=== PATIENT | female | born 1965 | race Caucasian/White ===

== ENCOUNTER 2017-08-30 20:29 | Emergency (ER) | payer MEDICARE, MEDICAID ==
[~2017-08-30] VITALS: Ht 5619.3 cm; Wt 91.0 kg
[~2017-08-30 20:29] MED LIST: CARV3.1289 PO; LISI10TA4 PO; NITR0.4T51 SL
[2017-08-30] MEDS ORDERED: ALBU8HFA PO (21:23)
[2017-08-30] MEDS ORDERED: GUAI473S11 PO (21:23)
[2017-08-30] MEDS ORDERED: PRED20TA PO (21:23)
[2017-08-30] MEDS ORDERED: BECL8.7A7 INH (21:23)
[2017-08-30 21:30] VITALS: BP 168/99
[2017-08-30] MEDS ORDERED: AZIT500T2 PO (22:47)
== END 2017-08-30 21:31 | disposition home or self-care (01) ==
LOC: ER 20:31
DX: J20.9 Acute bronchitis, unspecified (principal); J44.9 Chronic obstructive pulmonary disease, unspecified; I10 Essential (primary) hypertension; I25.2 Old myocardial infarction; F17.200 Nicotine dependence, unspecified, uncomplicated; F15.10 Other stimulant abuse, uncomplicated; Z88.0 Allergy status to penicillin; Z88.1 Allergy status to other antibiotic agents
CPT/HCPCS: 99283

== ENCOUNTER 2019-06-08 14:36 | Emergency (ER) | payer MEDICARE, MEDICAID ==
[~2019-06-08] VITALS: Ht 170.2 cm; Wt 90.9 kg
[~2019-06-08 14:36] MED LIST changes: +BECL8.7A7 INH
[2019-06-08 14:44] VITALS: BP 140/99
[2019-06-08] MEDS ORDERED: methylPREDNISolone sod succ 125mg/2ml vial IV ONE (15:40)
[2019-06-08] MEDS ORDERED: normal saline 1000ML IV soln IVB ONE (15:40)
[2019-06-08] MEDS ORDERED: furosemide 20 MG/2 ML vial IV ONE (15:50)
[2019-06-08] MEDS ORDERED: furosemide 10 MG/1 ML 10ml inj IV ONE (15:50)
[2019-06-08 15:59] LABS: BASOPHILS # (AUTO) 0.1 X10'3 (0-0.2); BASOPHILS % (AUTO) 0.9 % (0-1); EOSINOPHILS # (AUTO) 0.1 X10'3 (0-0.9); EOSINOPHILS % (AUTO) 0.8 % (0-6); HEMATOCRIT 41.2 % (35.0-45.0); HEMOGLOBIN 13.5 g/dl (12.0-16.0); LYMPHOCYTES # (AUTO) 2.3 X10'3 (1.1-4.8); LYMPHOCYTES % (AUTO) 28.4 % (21-51); MEAN CORPUSCULAR HEMOGLOBIN 30.6 PG (27.0-31.0); MEAN CORPUSCULAR HGB CONC 32.8 g/dL (33.0-36.5); MEAN CORPUSCULAR VOLUME 93.3 FL (78-98); MEAN PLATELET VOLUME 7.8 FL (7.4-10.4); MONOCYTES # (AUTO) 0.5 X10'3 (0-0.9); MONOCYTES % (AUTO) 6.3 % (2-12); NEUTROPHILS # (AUTO) 5.1 X10'3 (1.8-7.7); NEUTROPHILS % (AUTO) 63.6 % (42-75); PLATELET COUNT 226 X10'3 (140-440); RED BLOOD COUNT 4.42 X10'6 (4.20-5.60); RED CELL DISTRIBUTION WIDTH 14.4 % (11.5-14.5)
[2019-06-08] MEDS ORDERED: albuterol 2.5 MG/3 ML nebule CONTNEB PRN (16:10)
[2019-06-08 16:27] LABS: ALANINE AMINOTRANSFERASE 39 U/L (12-78); ALBUMIN 3.4 G/DL (3.4-5.0); ALBUMIN/GLOBULIN RATIO 0.9 (1.1-1.5); ALKALINE PHOSPHATASE 83 IU/L (46-116); ANION GAP 11 (8-16); ASPARTATE AMINO TRANSFERASE 30 U/L (10-37); BILIRUBIN,TOTAL 0.8 MG/DL (0.1-1.0); BLOOD UREA NITROGEN 16 MG/DL (7-18); BUN/CREATININE RATIO 23.2 (6.6-38.0); CALCIUM 8.8 MG/DL (8.5-10.1); CHLORIDE 105 MMOL/L (99-107); CREATININE 0.69 MG/DL (0.40-0.90); GLUCOSE 147 MG/DL (70-104); POTASSIUM 3.9 MMOL/L (3.5-5.1); SODIUM 142 MMOL/L (135-145); TOTAL CARBON DIOXIDE 26.1 MMOL/L (24-32); TOTAL PROTEIN 7.1 G/DL (6.4-8.2); eGFR 89 ML/MIN
[2019-06-08] MEDS ORDERED: POTA10TA19 PO (18:01)
[2019-06-08] MEDS ORDERED: FURO-150 PO (18:01)
== END 2019-06-08 18:21 | disposition home or self-care (01) ==
LOC: ER 14:36
DX: I50.9 Heart failure, unspecified (principal); I11.0 Hypertensive heart disease with heart failure; R53.83 Other fatigue; I25.2 Old myocardial infarction; J44.9 Chronic obstructive pulmonary disease, unspecified; Z88.0 Allergy status to penicillin; Z88.1 Allergy status to other antibiotic agents; Z79.899 Other long term (current) drug therapy
CPT/HCPCS: 36415; 71045; 80053; 83880; 84484; 85025; 93005; 94644; 94760; 96374; 96375; 99285; J1940; J2930

== ENCOUNTER 2019-07-03 16:03 | Emergency (ER) | payer MEDICARE, MEDICAID ==
[~2019-07-03] VITALS: Ht 170.2 cm; Wt 86.4 kg
[~2019-07-03 16:03] MED LIST changes: +FURO-150 PO; +POTA10TA19 PO
[2019-07-03 16:58] LABS: BASOPHILS # (AUTO) 0.1 X10'3 (0-0.2); BASOPHILS % (AUTO) 1.1 % (0-1); EOSINOPHILS % (AUTO) 0.7 % (0-6); HEMATOCRIT 43.3 % (35.0-45.0); HEMOGLOBIN 14.3 g/dl (12.0-16.0); LYMPHOCYTES # (AUTO) 2.1 X10'3 (1.1-4.8); LYMPHOCYTES % (AUTO) 31.6 % (21-51); MEAN CORPUSCULAR HGB CONC 33.1 g/dL (33.0-36.5); MEAN CORPUSCULAR VOLUME 90.5 FL (78-98); MEAN PLATELET VOLUME 7.8 FL (7.4-10.4); MONOCYTES # (AUTO) 0.6 X10'3 (0-0.9); MONOCYTES % (AUTO) 8.3 % (2-12); NEUTROPHILS # (AUTO) 3.9 X10'3 (1.8-7.7); NEUTROPHILS % (AUTO) 58.3 % (42-75); PLATELET COUNT 223 X10'3 (140-440); RED BLOOD COUNT 4.78 X10'6 (4.20-5.60); RED CELL DISTRIBUTION WIDTH 14.7 % (11.5-14.5); WHITE BLOOD COUNT 6.7 X10'3 (4.5-11.0)
[2019-07-03 17:16] LABS: ALANINE AMINOTRANSFERASE 36 U/L (12-78); ALBUMIN 3.3 G/DL (3.4-5.0); ALKALINE PHOSPHATASE 73 IU/L (46-116); ANION GAP 10 (8-16); ASPARTATE AMINO TRANSFERASE 37 U/L (10-37); BILIRUBIN,TOTAL 1.2 MG/DL (0.1-1.0); BLOOD UREA NITROGEN 12 MG/DL (7-18); BUN/CREATININE RATIO 10.9 (6.6-38.0); CALCIUM 8.8 MG/DL (8.5-10.1); CHLORIDE 103 MMOL/L (99-107); GLUCOSE 132 MG/DL (70-104); POTASSIUM 3.5 MMOL/L (3.5-5.1); SODIUM 142 MMOL/L (135-145); TOTAL CARBON DIOXIDE 28.6 MMOL/L (24-32); TOTAL PROTEIN 6.7 G/DL (6.4-8.2); eGFR 52 ML/MIN
--- NOTE | 2019-07-03 17:30 | NUR ---
provider at bedside
[2019-07-03] MEDS ORDERED: furosemide 40mg/4ml inj IV ONE (18:30)
[2019-07-03 19:00] VITALS: BP 118/91
[2019-07-03 19:08] LABS: MAGNESIUM 1.8 MG/DL (1.5-2.4)
[2019-07-03] MEDS ORDERED: nicotine prolacrilex 4mg gum BC PRN (19:40)
[2019-07-03] MEDS ORDERED: magnesium hydroxide 30ml (MOM) UD suspension PO PRN (19:50)
[2019-07-03] MEDS ORDERED: mag hydrox/Alum hydrox/simeth 30ml oral suspension PO PRN (19:50)
[2019-07-03] MEDS ORDERED: ondansetron/PF 4mg/2ml inj IV PRN (19:50)
[2019-07-03] MEDS ORDERED: magnesium Cl slow-release 64mg tablet PO PRN (19:50)
[2019-07-03] MEDS ORDERED: magnesium 2GM in 50ml NS 50 ML IV PRN (19:50)
[2019-07-03] MEDS ORDERED: magnesium 4gm in 100ml NS 100 ML IV PRN (19:50)
[2019-07-03] MEDS ORDERED: acetaminophen 325mg tablet PO PRN ×2 (19:50)
[2019-07-03] MEDS ORDERED: nitroGLYCERIN 0.4mg SUBLingual tab SL PRN (19:50)
[2019-07-03] MEDS ORDERED: nicotine prolacrilex 2mg gum BC PRN (19:50)
[2019-07-03] MEDS ORDERED: potassium CL 10mEq/100ml bag 100 ML IV PRN ×2 (19:50)
[2019-07-03] MEDS ORDERED: potassium Cl 20 mEq SR tablet PO PRN ×2 (19:50)
[2019-07-03] MEDS ORDERED: POTA10TA19 PO (19:53)
[2019-07-03] MEDS ORDERED: ASPI-1053 PO (19:53)
[2019-07-03] MEDS ORDERED: FURO-150 PO (19:53)
--- NOTE | 2019-07-03 19:58 | NUR ---
BERNY JAFFE AT PT BEDSIDE. PT REQUESTING TO LEAVE AMA. AMA PAPERWORK FILLED OUT AND IV PULLED. PT WILL BE DISCHARGING.
[2019-07-04] MEDS ORDERED: enoxaparin 40mg/0.4ml syringe SQ SCH (08:00)
[2019-07-04] MEDS ORDERED: K and/or MAG REPLACEMENT MC SCH (08:00)
== END 2019-07-03 20:09 | disposition left against medical advice (07) ==
LOC: ER 16:12
DX: J44.9 Chronic obstructive pulmonary disease, unspecified (principal); I11.0 Hypertensive heart disease with heart failure; I50.9 Heart failure, unspecified; I25.2 Old myocardial infarction; F17.200 Nicotine dependence, unspecified, uncomplicated; Z88.0 Allergy status to penicillin; Z88.1 Allergy status to other antibiotic agents; Z79.82 Long term (current) use of aspirin; Z79.899 Other long term (current) drug therapy
CPT/HCPCS: 36415; 71045; 80053; 83735; 83880; 84484; 85025; 93005; 96374; 99284; J1940

== ENCOUNTER 2019-07-29 17:15 | Inpatient (IN) | payer MEDICARE, MEDICAID ==
[~2019-07-29] VITALS: Ht 170.2 cm; Wt 95.6 kg
[~2019-07-29 17:15] MED LIST changes: +ASPI-1053 PO; -BECL8.7A7 INH; -CARV3.1289 PO; -LISI10TA4 PO; -NITR0.4T51 SL
[2019-07-29 19:20] LABS: BASOPHILS # (AUTO) 0.1 X10'3 (0-0.2); BASOPHILS % (AUTO) 0.9 % (0-1); EOSINOPHILS % (AUTO) 0.5 % (0-6); HEMATOCRIT 44.7 % (35.0-45.0); HEMOGLOBIN 14.6 g/dl (12.0-16.0); LYMPHOCYTES # (AUTO) 2.4 X10'3 (1.1-4.8); LYMPHOCYTES % (AUTO) 31.1 % (21-51); MEAN CORPUSCULAR HEMOGLOBIN 29.9 PG (27.0-31.0); MEAN CORPUSCULAR HGB CONC 32.8 g/dL (33.0-36.5); MEAN CORPUSCULAR VOLUME 91.3 FL (78-98); MEAN PLATELET VOLUME 8.3 FL (7.4-10.4); MONOCYTES # (AUTO) 0.5 X10'3 (0-0.9); MONOCYTES % (AUTO) 7.1 % (2-12); NEUTROPHILS # (AUTO) 4.6 X10'3 (1.8-7.7); NEUTROPHILS % (AUTO) 60.4 % (42-75); PLATELET COUNT 225 X10'3 (140-440); RED BLOOD COUNT 4.89 X10'6 (4.20-5.60); RED CELL DISTRIBUTION WIDTH 15.5 % (11.5-14.5); WHITE BLOOD COUNT 7.6 X10'3 (4.5-11.0)
[2019-07-29 19:29] LABS: ALANINE AMINOTRANSFERASE 42 U/L (12-78); ALBUMIN 3.5 G/DL (3.4-5.0); ALBUMIN/GLOBULIN RATIO 0.9 (1.1-1.5); ALKALINE PHOSPHATASE 84 IU/L (46-116); ANION GAP 8 (8-16); ASPARTATE AMINO TRANSFERASE 47 U/L (10-37); BILIRUBIN,TOTAL 0.9 MG/DL (0.1-1.0); BLOOD UREA NITROGEN 13 MG/DL (7-18); BUN/CREATININE RATIO 13.1 (6.6-38.0); CALCIUM 8.6 MG/DL (8.5-10.1); CHLORIDE 102 MMOL/L (99-107); CREATININE 0.99 MG/DL (0.40-0.90); GLUCOSE 109 MG/DL (70-104); POTASSIUM 3.9 MMOL/L (3.5-5.1); SODIUM 138 MMOL/L (135-145); TOTAL CARBON DIOXIDE 27.7 MMOL/L (24-32); TOTAL PROTEIN 7.2 G/DL (6.4-8.2); eGFR 58 ML/MIN
[2019-07-29 19:37] LABS: MAGNESIUM 1.9 MG/DL (1.5-2.4)
[2019-07-29] MEDS ORDERED: furosemide 10 MG/1 ML 10ml inj IV ONE (20:35)
[2019-07-29] MEDS ORDERED: potassium CL 10mEq/100ml bag 100 ML IV PRN ×2 (22:30)
[2019-07-29] MEDS ORDERED: magnesium 2GM in 50ml NS 50 ML IV PRN (22:30)
[2019-07-29] MEDS ORDERED: potassium Cl 20 mEq SR tablet PO PRN (22:30)
[2019-07-29] MEDS ORDERED: ondansetron/PF 4mg/2ml inj IV PRN (22:30)
[2019-07-29] MEDS ORDERED: magnesium Cl slow-release 64mg tablet PO PRN (22:30)
[2019-07-29] MEDS ORDERED: mag hydrox/Alum hydrox/simeth 30ml oral suspension PO PRN (22:30)
[2019-07-29] MEDS ORDERED: magnesium 4gm in 100ml NS 100 ML IV PRN (22:30)
[2019-07-29] MEDS ORDERED: acetaminophen 325mg tablet PO PRN (22:30)
[2019-07-29] MEDS ORDERED: magnesium hydroxide 30ml (MOM) UD suspension PO PRN (22:30)
--- NOTE | 2019-07-29 23:06 | NUR ---
Med Rec reviewed by Dr. Goldman.
--- NOTE | 2019-07-29 23:35 | NUR ---
Patient in room ED 9. I have received report from Rachana JOHN and had the opportunity to ask questions and assume patient care.
[2019-07-29 23:50] VITALS: BP 136/99
--- NOTE | 2019-07-29 23:51 | NUR ---
Pt arrived on unit A&O in no apparent distress. Addendum: 07/30/19 at 0252 by Caroline Yap RN A&O x 4
[2019-07-30 02:00] VITALS: BP 146/99
--- NOTE | 2019-07-30 06:30 | NUR ---
Patient in room PCU 3025. I have received report from [place] JOHN and had the opportunity to ask questions and assume patient care.
--- NOTE | 2019-07-30 06:30 | NUR ---
Patient in room PCU 3025. I have received report from [place] JOHN and had the opportunity to ask questions and assume patient care.
[2019-07-30 07:00] VITALS: BP 115/88
[2019-07-30] MEDS ORDERED: levoTHYROXINE 25mcg tablet PO SCH (07:00)
--- NOTE | 2019-07-30 07:02 | NUR ---
Problems reprioritized. Patient report given, questions answered & plan of care reviewed with Nena JOHN.
[2019-07-30 07:06] LABS: BASOPHILS # (AUTO) 0.1 X10'3 (0-0.2); BASOPHILS % (AUTO) 1.4 % (0-1); EOSINOPHILS % (AUTO) 0.7 % (0-6); HEMATOCRIT 42.6 % (35.0-45.0); LYMPHOCYTES # (AUTO) 1.9 X10'3 (1.1-4.8); LYMPHOCYTES % (AUTO) 28.3 % (21-51); MEAN CORPUSCULAR HEMOGLOBIN 29.6 PG (27.0-31.0); MEAN CORPUSCULAR HGB CONC 32.8 g/dL (33.0-36.5); MEAN CORPUSCULAR VOLUME 90.1 FL (78-98); MEAN PLATELET VOLUME 8.1 FL (7.4-10.4); MONOCYTES # (AUTO) 0.6 X10'3 (0-0.9); MONOCYTES % (AUTO) 8.7 % (2-12); NEUTROPHILS # (AUTO) 4.2 X10'3 (1.8-7.7); NEUTROPHILS % (AUTO) 60.9 % (42-75); PLATELET COUNT 184 X10'3 (140-440); RED BLOOD COUNT 4.73 X10'6 (4.20-5.60); WHITE BLOOD COUNT 6.8 X10'3 (4.5-11.0)
[2019-07-30 07:14] LABS: ALANINE AMINOTRANSFERASE 59 U/L (12-78); ALBUMIN 3.3 G/DL (3.4-5.0); ALBUMIN/GLOBULIN RATIO 1.1 (1.1-1.5); ALKALINE PHOSPHATASE 78 IU/L (46-116); ANION GAP 7 (8-16); ASPARTATE AMINO TRANSFERASE 74 U/L (10-37); BILIRUBIN,TOTAL 1.2 MG/DL (0.1-1.0); BLOOD UREA NITROGEN 12 MG/DL (7-18); BUN/CREATININE RATIO 14.3 (6.6-38.0); CALCIUM 9.2 MG/DL (8.5-10.1); CHLORIDE 104 MMOL/L (99-107); CREATININE 0.84 MG/DL (0.40-0.90); GLUCOSE 94 MG/DL (70-104); POTASSIUM 3.5 MMOL/L (3.5-5.1); SODIUM 141 MMOL/L (135-145); TOTAL CARBON DIOXIDE 29.8 MMOL/L (24-32); TOTAL PROTEIN 6.4 G/DL (6.4-8.2); eGFR 70 ML/MIN
[2019-07-30 07:17] LABS: MAGNESIUM 1.7 MG/DL (1.5-2.4)
[2019-07-30] MEDS: aspirin 81mg tablet.DR PO SCH (08:12)
[2019-07-30] MEDS: carVEDilol 3.125mg tablet PO SCH ×2 (08:12→20:35)
[2019-07-30] MEDS: furosemide 10 MG/1 ML 10ml inj IV SCH ×2 (08:13→20:34)
[2019-07-30] MEDS: heparin, porcine 5000 units/ml vial SQ SCH ×2 (08:14→20:00)
[2019-07-30] MEDS: lisinopril 2.5mg tablet PO SCH (08:16)
[2019-07-30] MEDS: K and/or MAG REPLACEMENT MC SCH ×2 (08:33→20:00)
[2019-07-30 11:00] VITALS: BP 108/58
[2019-07-30] MEDS ORDERED: iohexol 300mg/ml 100ml inj. ONE (11:00)
[2019-07-30 15:00] VITALS: BP 106/70
[2019-07-30] MEDS ORDERED: silver sulfadiazine cream 400gm jar TP SCH (15:00)
--- NOTE | 2019-07-30 15:30 | NUR ---
Patient in room PCU 3025. I have received report from Nena JOHN and had the opportunity to ask questions and assume patient care.
--- NOTE | 2019-07-30 18:00 | NUR ---
Patient in room PCU 3025. I have received report from Ban JOHN and had the opportunity to ask questions and assume patient care.
--- NOTE | 2019-07-30 18:21 | NUR ---
Problems reprioritized. Patient report given, questions answered & plan of care reviewed with Neema JOHN.
[2019-07-30 19:00] VITALS: BP 114/68
[2019-07-30] MEDS: silver sulfadiazine cream 50gm TP SCH (20:35)
[2019-07-30 22:00] VITALS: BP 114/65
--- NOTE | 2019-07-31 01:26 | NUR ---
House Convenience PAGER ID: [phone] MESSAGE: [phone] Olga Chirinos: Can she be house convenience? Patient is stable, plan is to give lasix and to go home.Neema [id number]
[2019-07-31 02:00] VITALS: BP 93/56
--- NOTE | 2019-07-31 05:00 | NUR ---
END NOC NOTE Patient has been able to rest tonight; did not appreciate house keeping cleaning B side bed area at 0200 in the morning. Wound care done. Patient is still up ad hugo and uses the toilet. Will continue to monitor.
[2019-07-31 06:00] VITALS: BP 112/72
--- NOTE | 2019-07-31 06:18 | NUR ---
Patient in room PCU 3025. I have received report from Neema JOHN and had the opportunity to ask questions and assume patient care.
[2019-07-31 06:25] LABS: BASOPHILS # (AUTO) 0.1 X10'3 (0-0.2); BASOPHILS % (AUTO) 0.8 % (0-1); EOSINOPHILS # (AUTO) 0.1 X10'3 (0-0.9); EOSINOPHILS % (AUTO) 1.7 % (0-6); HEMATOCRIT 43.3 % (35.0-45.0); HEMOGLOBIN 14.4 g/dl (12.0-16.0); LYMPHOCYTES # (AUTO) 2.1 X10'3 (1.1-4.8); LYMPHOCYTES % (AUTO) 33.8 % (21-51); MEAN CORPUSCULAR HEMOGLOBIN 29.7 PG (27.0-31.0); MEAN CORPUSCULAR HGB CONC 33.2 g/dL (33.0-36.5); MEAN CORPUSCULAR VOLUME 89.3 FL (78-98); MEAN PLATELET VOLUME 7.9 FL (7.4-10.4); MONOCYTES # (AUTO) 0.5 X10'3 (0-0.9); MONOCYTES % (AUTO) 8.8 % (2-12); NEUTROPHILS # (AUTO) 3.3 X10'3 (1.8-7.7); NEUTROPHILS % (AUTO) 54.9 % (42-75); PLATELET COUNT 187 X10'3 (140-440); RED BLOOD COUNT 4.85 X10'6 (4.20-5.60); RED CELL DISTRIBUTION WIDTH 15.3 % (11.5-14.5); WHITE BLOOD COUNT 6.1 X10'3 (4.5-11.0)
--- NOTE | 2019-07-31 06:30 | NUR ---
Problems reprioritized. Patient report given, questions answered & plan of care reviewed with Ban JOHN.
[2019-07-31 06:36] LABS: GLUCOSE 96 MG/DL (70-104)
[2019-07-31 06:37] LABS: ALANINE AMINOTRANSFERASE 64 U/L (12-78); ALBUMIN 2.8 G/DL (3.4-5.0); ALBUMIN/GLOBULIN RATIO 0.9 (1.1-1.5); ALKALINE PHOSPHATASE 69 IU/L (46-116); ANION GAP 6 (8-16); ASPARTATE AMINO TRANSFERASE 63 U/L (10-37); BILIRUBIN,TOTAL 0.8 MG/DL (0.1-1.0); BLOOD UREA NITROGEN 13 MG/DL (7-18); BUN/CREATININE RATIO 14.3 (6.6-38.0); CALCIUM 8.5 MG/DL (8.5-10.1); CHLORIDE 101 MMOL/L (99-107); CREATININE 0.91 MG/DL (0.40-0.90); MAGNESIUM 1.5 MG/DL (1.5-2.4); SODIUM 140 MMOL/L (135-145); TOTAL CARBON DIOXIDE 32.8 MMOL/L (24-32); eGFR 64 ML/MIN
--- NOTE | 2019-07-31 06:44 | NUR ---
Paged Dr. Mo re critical K+ level 3.0 PAGER ID: [phone] MESSAGE: Ban JOHN [phone], rm [id number] SAMANTHA Petty [facility] K+ 3.0, already have orders to replace, thank you!
[2019-07-31] MEDS: heparin, porcine 5000 units/ml vial SQ SCH (08:00)
[2019-07-31] MEDS ORDERED: levoTHYROXINE 25mcg tablet PO SCH (08:00)
[2019-07-31] MEDS: furosemide 10 MG/1 ML 10ml inj IV SCH (08:10)
[2019-07-31] MEDS: carVEDilol 3.125mg tablet PO SCH (08:11)
[2019-07-31] MEDS: aspirin 81mg tablet.DR PO SCH (08:11)
[2019-07-31] MEDS: K and/or MAG REPLACEMENT MC SCH (08:11)
[2019-07-31] MEDS: lisinopril 2.5mg tablet PO SCH (08:11)
[2019-07-31] MEDS: potassium Cl 20 mEq SR tablet PO PRN ×2 (08:12→12:01)
[2019-07-31 11:00] VITALS: BP 90/57
[2019-07-31] MEDS: silver sulfadiazine cream 50gm TP SCH (12:01)
--- NOTE | 2019-07-31 14:35 | NUR ---
Paged Dr. Chavez re: PAGER ID: [phone] MESSAGE: Ban JOHN [phone], RM [id number], Marguerite Chirinos, K+ came back at 3.5, do you want to go ahead with discharge? thanks!
[2019-07-31 15:00] VITALS: BP 101/66
[2019-07-31] MEDS ORDERED: POTA10TA19 PO (15:16)
[2019-07-31] MEDS ORDERED: LISI2.5T2 PO (15:16)
[2019-07-31] MEDS ORDERED: COR3.125T PO (15:16)
[2019-07-31] MEDS ORDERED: FURO-150 PO (15:16)
[2019-07-31] MEDS ORDERED: LEVO25TA7 PO (15:16)
--- NOTE | 2019-07-31 16:47 | NUR ---
Pt declined to have a follow up apt made by the nurse Addendum: 07/31/19 at 1647 by Jennifer Renee RN Amended: Links added.
--- NOTE | 2019-07-31 17:45 | NUR ---
Stable for dischaarge per MD, all discharge instructions reviewed/all questions answered, new prescriptions called in to [facility] [place], PIV discontinued, Tele monitor discontinued, pt wheeled off the unit in wheelchair at 1745 to [facility]
[2019-08-01] MEDS ORDERED: furosemide 10 MG/1 ML 10ml inj IV SCH (08:00)
== END 2019-07-31 17:45 | disposition home or self-care (01) | DRG 293 ==
LOC: ER 17:16 → ED HOLD 22:26 → PCU 3S 23:50
PROVIDERS: ADMIT Internal Medicine; ATTEND Internal Medicine
DX: I11.0 Hypertensive heart disease with heart failure (principal); I50.23 Acute on chronic systolic (congestive) heart failure; E03.9 Hypothyroidism, unspecified; F17.210 Nicotine dependence, cigarettes, uncomplicated; J44.9 Chronic obstructive pulmonary disease, unspecified; L98.9 Disorder of the skin and subcutaneous tissue, unspecified; N63.10 Unspecified lump in the right breast, unspecified quadrant; I25.2 Old myocardial infarction; B95.62 Methicillin resistant Staphylococcus aureus infection as the cause of diseases classified elsewhere; Z80.3 Family history of malignant neoplasm of breast; Z82.49 Family history of ischemic heart disease and other diseases of the circulatory system
CPT/HCPCS: 36415; 71045; 71260; 80053; 83735; 83880; 84132; 84443; 84484; 85025; 87081; 93005; 93306; 99291; G0378; J1644; J1940; Q9967

== ENCOUNTER 2022-02-16 17:00 | Emergency (ER) | payer MEDICARE, MEDICAID ==
[~2022-02-16 17:00] MED LIST changes: +COR3.125T PO; +LEVO25TA7 PO; +LISI2.5T14 PO; +POTA-192 PO; -POTA10TA19 PO
== END 2022-02-16 17:58 | disposition left against medical advice (07) ==
LOC: ER 17:02
DX: R06.02 Shortness of breath (principal); Z53.21 Procedure and treatment not carried out due to patient leaving prior to being seen by health care provider
CPT/HCPCS: 93005

== ENCOUNTER 2023-05-10 02:46 | Inpatient (IN) | payer MEDICAID, MEDICARE ==
[~2023-05-10] VITALS: Ht 170.2 cm; Wt 65.9 kg
[~2023-05-10 02:46] MED LIST changes: -ASPI-1053 PO; -COR3.125T PO; -FURO-150 PO; -LEVO25TA7 PO; -LISI2.5T14 PO; +NO HOME MEDS; -POTA-192 PO
[2023-05-10 03:38] LABS: BASOPHILS # (AUTO) 0.1 X10'3 (0-0.2); EOSINOPHILS % (AUTO) 0.6 % (0-6); HEMATOCRIT 47.5 % (35.0-45.0); HEMOGLOBIN 15.6 g/dl (12.0-16.0); LYMPHOCYTES # (AUTO) 1.7 X10'3 (1.1-4.8); MEAN CORPUSCULAR HEMOGLOBIN 31.2 PG (27.0-31.0); MEAN CORPUSCULAR HGB CONC 32.9 g/dL (33.0-36.5); MEAN CORPUSCULAR VOLUME 94.9 FL (78-98); MEAN PLATELET VOLUME 7.5 FL (7.4-10.4); MONOCYTES # (AUTO) 0.5 X10'3 (0-0.9); MONOCYTES % (AUTO) 8.2 % (2-12); NEUTROPHILS # (AUTO) 4.3 X10'3 (1.8-7.7); NEUTROPHILS % (AUTO) 64.2 % (42-75); PLATELET COUNT 193 X10'3 (140-440); RED CELL DISTRIBUTION WIDTH 15.4 % (11.5-14.5); WHITE BLOOD COUNT 6.6 X10'3 (4.5-11.0)
[2023-05-10 03:50] LABS: ALANINE AMINOTRANSFERASE 36 U/L (12-78); ALBUMIN 3.1 G/DL (3.4-5.0); ALBUMIN/GLOBULIN RATIO 0.9 (1.1-1.5); ALKALINE PHOSPHATASE 60 IU/L (46-116); ANION GAP 3 (8-16); ASPARTATE AMINO TRANSFERASE 35 U/L (10-37); BILIRUBIN,TOTAL 0.6 MG/DL (0.1-1.0); BLOOD UREA NITROGEN 23 MG/DL (7-18); BUN/CREATININE RATIO 33.8 (10.0-20.0); CALCIUM 9.3 MG/DL (8.5-10.1); CHLORIDE 100 MMOL/L (99-107); CREATININE 0.68 MG/DL (0.40-0.90); GLUCOSE 115 MG/DL (70-104); POTASSIUM 3.7 MMOL/L (3.5-5.1); SODIUM 137 MMOL/L (135-145); TOTAL CARBON DIOXIDE 34.4 MMOL/L (24-32); TOTAL PROTEIN 6.5 G/DL (6.4-8.2); eCRCL 88 ML/MIN; eGFR 89 ML/MIN
[2023-05-10 03:59] LABS: PRO BRAIN NATRIURETIC PEPTIDE 20539 PG/ML (0-125)
[2023-05-10] MEDS ORDERED: furosemide 10 MG/1 ML 10ml inj IV ONE (04:25)
[2023-05-10] MEDS ORDERED: aspirin 81mg tab.chew PO ONE (04:25)
[2023-05-10] MEDS ORDERED: magnesium Cl slow-release 64mg tablet PO PRN (04:45)
[2023-05-10] MEDS ORDERED: magnesium 4gm in 100ml NS 100 ML IV PRN (04:45)
[2023-05-10] MEDS ORDERED: mag hydrox/Alum hydrox/simeth 30ml oral suspension PO PRN (04:45)
[2023-05-10] MEDS ORDERED: potassium Cl 40MEQ/1/2NS 520ml 520 ML IV PRN (04:45)
[2023-05-10] MEDS ORDERED: acetaminophen 325mg tablet PO PRN (04:45)
[2023-05-10] MEDS ORDERED: ondansetron/PF 4mg/2ml inj IV PRN (04:45)
[2023-05-10] MEDS ORDERED: magnesium hydroxide 30ml (MOM) UD suspension PO PRN (04:45)
[2023-05-10] MEDS ORDERED: potassium Cl 20 mEq SR tablet PO PRN ×2 (04:45)
[2023-05-10] MEDS ORDERED: PERFLUTREN PROTEIN-A MICROSPHR (Optison) 0.22 MG/ML 3ML VIAL IV ONE (04:45)
[2023-05-10] MEDS ORDERED: magnesium 2GM in 50ml NS 50 ML IV PRN (04:45)
[2023-05-10] MEDS ORDERED: LISI2.5T14 PO (05:37)
[2023-05-10] MEDS ORDERED: CARV3.122 PO (05:37)
[2023-05-10] MEDS ORDERED: FURO20TA4 PO (05:37)
[2023-05-10] MEDS ORDERED: POTA-192 PO (05:37)
[2023-05-10 05:50] LABS: URINE AMPHETAMINE SCREEN POSITIVE (Neg); URINE BARBITUATE SCREEN NEGATIVE (Neg); URINE BENZODIAZEPINES SCREEN NEGATIVE (Neg); URINE CANNABINOID SCREEN POSITIVE (Neg); URINE COCAINE SCREEN NEGATIVE (Neg); URINE METHADONE SCREEN NEGATIVE (Neg); URINE OPIATE SCREEN NEGATIVE (Neg); URINE PHENCYCLIDINE SCREEN NEGATIVE (Neg)
[2023-05-10 07:54] LABS: MAGNESIUM 1.7 MG/DL (1.5-2.4); POTASSIUM 3.3 MMOL/L (3.5-5.1)
[2023-05-10] MEDS ORDERED: K and/or MAG REPLACEMENT MC SCH (08:00)
[2023-05-10] MEDS ORDERED: carvedilol 6.25mg tablet PO SCH (08:00)
[2023-05-10] MEDS ORDERED: docusate sod 100mg capsule PO SCH (08:00)
[2023-05-10] MEDS ORDERED: furosemide 10 MG/1 ML 10ml inj IV SCH (08:00)
[2023-05-10] MEDS ORDERED: heparin, porcine 5000 units/ml vial SQ SCH (08:00)
--- NOTE | 2023-05-10 08:33 | NUR ---
dr alisa thornton for critical result trop 303 results given no new orders at present time primary rn rene notified
[2023-05-10] MEDS ORDERED: iohexol 300mg/ml 100ml inj. ONE (09:12)
--- NOTE | 2023-05-10 15:14 | NUR ---
Pt cursing and hollering in room. Pt refusing VS
--- NOTE | 2023-05-10 15:14 | NUR ---
Pt wanting to go outside. This RN offerred nicotine patch. Pt declined. All needs addressed.
[2023-05-10 15:29] VITALS: BP 98/62; PULSE 99; RESP 18; O2SAT 95
--- NOTE | 2023-05-10 15:42 | NUR ---
Gave pt blanket, pillow, ice chips. Pt allowing staff to take VS. All needs addressed.
--- NOTE | 2023-05-10 16:52 | NUR ---
Pt throwing bedside table on floor, cursing, hollering. Security called. Pt leaving AMA but refusing to sign paperwork. Dr Chavez notified at bedside. Pt took out own IV earlier during my shift.
[2023-05-10 16:57] VITALS: TEMP 97.9
== END 2023-05-10 16:57 | disposition left against medical advice (07) | DRG 280 ==
LOC: ER 02:46 → ED HOLD 04:46
PROVIDERS: ADMIT Internal Medicine; ATTEND Internal Medicine
DX: I11.0 Hypertensive heart disease with heart failure (principal); I50.23 Acute on chronic systolic (congestive) heart failure; I21.A1 Myocardial infarction type 2; I42.0 Dilated cardiomyopathy; Z53.21 Procedure and treatment not carried out due to patient leaving prior to being seen by health care provider; J44.9 Chronic obstructive pulmonary disease, unspecified; I25.10 Atherosclerotic heart disease of native coronary artery without angina pectoris; J84.10 Pulmonary fibrosis, unspecified; Z66 Do not resuscitate; C50.919 Malignant neoplasm of unspecified site of unspecified female breast; I25.2 Old myocardial infarction; Z88.0 Allergy status to penicillin
CPT/HCPCS: 36415; 71045; 71260; 80053; 80305; 83735; 83880; 84132; 84484; 85025; 93005; 96374; 99285; G0378; J1644; J1940; J3490; Q9967

== ENCOUNTER 2023-06-10 01:33 | Emergency (ER) | payer MEDICARE ==
[~2023-06-10] VITALS: Ht 167.6 cm; Wt 68.2 kg
[~2023-06-10 01:33] MED LIST changes: +CARV3.122 PO; +FURO20TA4 PO; +LISI2.5T14 PO; -NO HOME MEDS; +POTA-192 PO
[2023-06-10] MEDS ORDERED: ipratropium/albuterol 3ml nebule NEB ONE (02:10)
[2023-06-10] MEDS ORDERED: CefTRIAXone 2gm/D5W 50ml BAG 50 ML IV ONE (02:10)
[2023-06-10] MEDS ORDERED: methylPREDNISolone sod succ 125mg/2ml vial IV ONE (02:10)
[2023-06-10 02:39] LABS: BASOPHILS % (AUTO) 0.7 % (0-1); EOSINOPHILS # (AUTO) 0.1 X10'3 (0-0.9); HEMATOCRIT 42.5 % (35.0-45.0); LYMPHOCYTES # (AUTO) 2.1 X10'3 (1.1-4.8); LYMPHOCYTES % (AUTO) 31.3 % (21-51); MEAN CORPUSCULAR HEMOGLOBIN 31.6 PG (27.0-31.0); MEAN CORPUSCULAR VOLUME 95.7 FL (78-98); MEAN PLATELET VOLUME 7.8 FL (7.4-10.4); MONOCYTES # (AUTO) 0.5 X10'3 (0-0.9); MONOCYTES % (AUTO) 6.8 % (2-12); NEUTROPHILS # (AUTO) 4.1 X10'3 (1.8-7.7); NEUTROPHILS % (AUTO) 60.2 % (42-75); PLATELET COUNT 177 X10'3 (140-440); RED BLOOD COUNT 4.44 X10'6 (4.20-5.60); RED CELL DISTRIBUTION WIDTH 15.9 % (11.5-14.5); WHITE BLOOD COUNT 6.8 X10'3 (4.5-11.0)
[2023-06-10 02:58] LABS: ALANINE AMINOTRANSFERASE 26 U/L (12-78); ALBUMIN 3.3 G/DL (3.4-5.0); ALKALINE PHOSPHATASE 73 IU/L (46-116); ANION GAP 6 (8-16); ASPARTATE AMINO TRANSFERASE 25 U/L (10-37); BILIRUBIN,TOTAL 0.7 MG/DL (0.1-1.0); BLOOD UREA NITROGEN 17 MG/DL (7-18); BUN/CREATININE RATIO 25.4 (10.0-20.0); CALCIUM 9.3 MG/DL (8.5-10.1); CHLORIDE 101 MMOL/L (99-107); CREATININE 0.67 MG/DL (0.40-0.90); GLUCOSE 134 MG/DL (70-104); PRO BRAIN NATRIURETIC PEPTIDE 20291 PG/ML (0-125); SODIUM 140 MMOL/L (135-145); TOTAL CARBON DIOXIDE 33.5 MMOL/L (24-32); TOTAL PROTEIN 6.7 G/DL (6.4-8.2); eCRCL 86 ML/MIN; eGFR 90 ML/MIN
[2023-06-10 03:01] LABS: APTT 26 SECONDS (22-32); INR 1.2 INR; PROTHROMBIN TIME 12.8 SECONDS (9.0-12.0)
[2023-06-10 03:25] VITALS: PULSE 110; RESP 20; O2SAT 95
--- NOTE | 2023-06-10 03:29 | NUR ---
rt at bedside
[2023-06-10 03:31] VITALS: PULSE 115; RESP 18; O2SAT 100
[2023-06-10] MEDS ORDERED: DOXYCYCLINE 100MG CAPSULE PO STA ×2 (03:56→04:46)
[2023-06-10] MEDS ORDERED: doxycycline inj 100 MG in normal saline 100ml IV soln 100 ML IV SCH (04:24)
[2023-06-10] MEDS ORDERED: furosemide 10 MG/1 ML 10ml inj IV ONE ×2 (04:55→05:25)
[2023-06-10] MEDS ORDERED: furosemide 20MG tablet PO ONE (05:00)
[2023-06-10] MEDS ORDERED: DOXY100C97 PO (05:06)
[2023-06-10] MEDS ORDERED: SULF1TAB49 PO (05:06)
[2023-06-10] MEDS ORDERED: PRED20TA PO (05:06)
[2023-06-10] MEDS ORDERED: FURO-150 PO (05:06)
[2023-06-10] MEDS ORDERED: ALBU8HFA PO (05:06)
[2023-06-10] MEDS ORDERED: HYDR-3965 PO (05:06)
[2023-06-10 05:34] VITALS: TEMP 97.5
--- NOTE | 2023-06-10 05:43 | NUR ---
pt states she is unhappy with the service provided here. pt states she refuses to be disharged untill they fix her. informed charge nurse informed
--- NOTE | 2023-06-10 06:10 | NUR ---
awaiting case mgt consult
[2023-06-10 06:34] VITALS: BP 138/94; PULSE 113; RESP 22; O2SAT 92
--- NOTE | 2023-06-10 06:51 | NUR ---
Recieved report from LOU Jeffery. Received in report that pt is discharged to home after case management sees pt. Upon morning rounds, pt states "I'm not waiting around if i'm just going to be discharged." Dr Vail notified. Pt given discharge papers, pt verbalized understanding to rx's. Pt ambulatory in hallway, independently walking to waiting room w/o SOB.
== END 2023-06-10 06:56 | disposition home or self-care (01) ==
LOC: ER 01:34
DX: R60.0 Localized edema (principal); J44.1 Chronic obstructive pulmonary disease with (acute) exacerbation; R05.9 Cough, unspecified
CPT/HCPCS: 36415; 71045; 80053; 83605; 83880; 84484; 85025; 85610; 85730; 94640; 96365; 96375; 99285; J0696; J1940; J2930; 94760

== ENCOUNTER 2023-10-15 16:02 | Emergency (ER) | payer MEDICAID, MEDICARE ==
[~2023-10-15] VITALS: Ht 170.2 cm; Wt 65.9 kg
[~2023-10-15 16:02] MED LIST changes: +FURO-150 PO
[2023-10-15 16:11] VITALS: BP 139/96; PULSE 115; RESP 20; TEMP 97.5; O2SAT 98
[2023-10-15 16:25] LABS: BASOPHILS # (AUTO) 0.1 X10'3 (0-0.2); BASOPHILS % (AUTO) 0.9 % (0-1); EOSINOPHILS % (AUTO) 0.7 % (0-6); HEMATOCRIT 48.7 % (35.0-45.0); HEMOGLOBIN 15.9 g/dl (12.0-16.0); LYMPHOCYTES # (AUTO) 1.6 X10'3 (1.1-4.8); LYMPHOCYTES % (AUTO) 21.6 % (21-51); MEAN CORPUSCULAR HEMOGLOBIN 31.6 PG (27.0-31.0); MEAN CORPUSCULAR HGB CONC 32.6 g/dL (33.0-36.5); MEAN CORPUSCULAR VOLUME 96.9 FL (78-98); MEAN PLATELET VOLUME 7.6 FL (7.4-10.4); MONOCYTES # (AUTO) 0.5 X10'3 (0-0.9); MONOCYTES % (AUTO) 7.1 % (2-12); NEUTROPHILS # (AUTO) 5.1 X10'3 (1.8-7.7); NEUTROPHILS % (AUTO) 69.7 % (42-75); PLATELET COUNT 183 X10'3 (140-440); RED BLOOD COUNT 5.03 X10'6 (4.20-5.60); RED CELL DISTRIBUTION WIDTH 15.5 % (11.5-14.5); WHITE BLOOD COUNT 7.4 X10'3 (4.5-11.0)
[2023-10-15 16:45] LABS: ALBUMIN 3.4 G/DL (3.4-5.0); ANION GAP 5 (8-16); BLOOD UREA NITROGEN 16 MG/DL (7-18); BUN/CREATININE RATIO 20.5 (10.0-20.0); CALCIUM 8.9 MG/DL (8.5-10.1); CHLORIDE 102 MMOL/L (99-107); CREATININE 0.78 MG/DL (0.40-0.90); GLUCOSE 132 MG/DL (70-104); POTASSIUM 3.5 MMOL/L (3.5-5.1); PRO BRAIN NATRIURETIC PEPTIDE 27683 PG/ML (0-125); SODIUM 145 MMOL/L (135-145); TOTAL CARBON DIOXIDE 37.6 MMOL/L (24-32); eCRCL 76 ML/MIN; eGFR 76 ML/MIN
== END 2023-10-15 20:25 | disposition left against medical advice (07) ==
LOC: ER 16:03
DX: R06.02 Shortness of breath (principal); Z53.21 Procedure and treatment not carried out due to patient leaving prior to being seen by health care provider; R07.9 Chest pain, unspecified
CPT/HCPCS: 36415; 71045; 80048; 83880; 84484; 85025; 93005; 99281

== ENCOUNTER 2023-10-29 09:22 | Inpatient (IN) | payer MEDICARE ==
[~2023-10-29] VITALS: Ht 170.2 cm; Wt 63.6 kg
[2023-10-29 10:33] LABS: MONOCYTES # (AUTO) 0.3 X10'3 (0-0.9); PLATELET COUNT 165 X10'3 (140-440); RED CELL DISTRIBUTION WIDTH 15.6 % (11.5-14.5)
[2023-10-29 10:35] LABS: BASOPHILS % (AUTO) 0.8 % (0-1); EOSINOPHILS % (AUTO) 0.9 % (0-6); HEMATOCRIT 51.2 % (35.0-45.0); HEMOGLOBIN 16.8 g/dl (12.0-16.0); LYMPHOCYTES % (AUTO) 19.6 % (21-51); MEAN CORPUSCULAR HEMOGLOBIN 31.5 PG (27.0-31.0); MEAN CORPUSCULAR HGB CONC 32.7 g/dL (33.0-36.5); MEAN CORPUSCULAR VOLUME 96.2 FL (78-98); MONOCYTES % (AUTO) 5.5 % (2-12); NEUTROPHILS # (AUTO) 3.6 X10'3 (1.8-7.7); NEUTROPHILS % (AUTO) 73.2 % (42-75); RED BLOOD COUNT 5.32 X10'6 (4.20-5.60)
[2023-10-29 10:45] LABS: ALBUMIN 3.6 G/DL (3.4-5.0); ANION GAP 4 (8-16); BLOOD UREA NITROGEN 12 MG/DL (7-18); BUN/CREATININE RATIO 12.6 (10.0-20.0); CALCIUM 8.9 MG/DL (8.5-10.1); CHLORIDE 103 MMOL/L (99-107); CREATININE 0.95 MG/DL (0.40-0.90); GLUCOSE 147 MG/DL (70-104); POTASSIUM 3.7 MMOL/L (3.5-5.1); PRO BRAIN NATRIURETIC PEPTIDE 14064 PG/ML (0-125); SODIUM 144 MMOL/L (135-145); TOTAL CARBON DIOXIDE 36.8 MMOL/L (24-32); eCRCL 62 ML/MIN; eGFR 60 ML/MIN
[2023-10-29] MEDS: methylPREDNISolone sod succ/PF 40mg inj. IV ONE (11:18)
[2023-10-29] MEDS: furosemide 10 MG/1 ML 10ml inj IV ONE (11:18)
[2023-10-29] MEDS: ipratropium/albuterol 3ml nebule NEB ONE (12:10)
[2023-10-29] MEDS ORDERED: magnesium hydroxide 30ml (MOM) UD suspension PO PRN (12:25)
[2023-10-29] MEDS ORDERED: mag hydrox/Alum hydrox/simeth 30ml oral suspension PO PRN (12:25)
[2023-10-29] MEDS ORDERED: acetaminophen 325mg tablet PO PRN (12:25)
[2023-10-29] MEDS ORDERED: potassium Cl 40MEQ/1/2NS 520ml 520 ML IV PRN (12:25)
[2023-10-29] MEDS ORDERED: magnesium 2GM in 50ml NS 50 ML IV PRN (12:25)
[2023-10-29] MEDS ORDERED: magnesium 4gm in 100ml NS 100 ML IV PRN (12:25)
[2023-10-29] MEDS ORDERED: potassium Cl 20 mEq SR tablet PO PRN ×2 (12:25)
[2023-10-29] MEDS ORDERED: magnesium Cl slow-release 64mg tablet PO PRN (12:25)
[2023-10-29] MEDS ORDERED: ondansetron/PF 4mg/2ml inj IV PRN (12:25)
[2023-10-29] MEDS ORDERED: albuterol 2.5 MG/3 ML nebule NEB PRN (12:30)
[2023-10-29] MEDS ORDERED: ipratropium/albuterol 3ml nebule NEB PRN (12:30)
[2023-10-29] MEDS ORDERED: iohexol 350MG/ML 100ml bottle IV ONE (12:42)
[2023-10-29 13:09] LABS: D-DIMER 0.75 MG/L FEU (0-0.50)
[2023-10-29 15:30] VITALS: BP 139/81; PULSE 105; RESP 15; TEMP 97.7; O2SAT 89
[2023-10-29] MEDS: lisinopril 10 MG tablet PO SCH (16:00)
[2023-10-29 18:00] VITALS: BP 137/77; PULSE 102; RESP 17; TEMP 98.6; O2SAT 98
[2023-10-29] MEDS ORDERED: EMPA10TA PO (18:02)
[2023-10-29] MEDS ORDERED: APIX5TAB3 PO (18:02)
[2023-10-29] MEDS ORDERED: LAN0.125T PO (18:02)
[2023-10-29] MEDS ORDERED: ASPI-1397 PO (18:02)
[2023-10-29] MEDS ORDERED: SPIR25TA5 PO (18:02)
[2023-10-29 18:47] VITALS: O2SAT 93
[2023-10-29 20:00] VITALS: RESP 17; O2SAT 98
[2023-10-29] MEDS: apixaban 5mg tablet PO SCH (20:00)
[2023-10-29] MEDS: spironolactone 25 MG tablet PO SCH (20:00)
[2023-10-29] MEDS: K and/or MAG REPLACEMENT MC SCH (20:00)
[2023-10-29] MEDS: docusate sod 100mg capsule PO SCH (20:00)
[2023-10-29 22:00] VITALS: BP 120/69; PULSE 91; RESP 18; TEMP 97.6; O2SAT 97
[2023-10-29] MEDS: furosemide 10 MG/1 ML 10ml inj IV SCH (22:44)
[2023-10-30 02:00] VITALS: BP 124/71; PULSE 101; RESP 18; TEMP 97.8; O2SAT 96
[2023-10-30 06:30] VITALS: PULSE 82
[2023-10-30 07:00] VITALS: BP 124/69; PULSE 85; RESP 18; TEMP 97.8; O2SAT 95
[2023-10-30] MEDS ORDERED: enoxaparin 40mg/0.4ml syringe SUBCUT SCH (08:00)
[2023-10-30] MEDS ORDERED: EMPAGLIFLOZIN 10 MG TABLET PO SCH (08:00)
[2023-10-30] MEDS ORDERED: carVEDilol 3.125mg tablet PO SCH (20:00)
== END 2023-10-30 07:54 | disposition left against medical advice (07) | DRG 291 ==
LOC: ER 09:22 → ED HOLD 12:26 → PCU 3S 14:50
PROVIDERS: ADMIT Internal Medicine; ATTEND Internal Medicine
PROC: B32T1ZZ Computerized Tomography (CT Scan) of Left Pulmonary Artery using Low Osmolar Contrast (ICD-10-PCS; principal; 2023-10-29)
PROC: B3201ZZ Computerized Tomography (CT Scan) of Thoracic Aorta using Low Osmolar Contrast (ICD-10-PCS; 2023-10-29)
PROC: B32S1ZZ Computerized Tomography (CT Scan) of Right Pulmonary Artery using Low Osmolar Contrast (ICD-10-PCS; 2023-10-29)
DX: I11.0 Hypertensive heart disease with heart failure (principal); I50.23 Acute on chronic systolic (congestive) heart failure; J44.1 Chronic obstructive pulmonary disease with (acute) exacerbation; Z59.02 Unsheltered homelessness; F17.210 Nicotine dependence, cigarettes, uncomplicated; J84.10 Pulmonary fibrosis, unspecified; Z53.21 Procedure and treatment not carried out due to patient leaving prior to being seen by health care provider; I25.10 Atherosclerotic heart disease of native coronary artery without angina pectoris; Z85.3 Personal history of malignant neoplasm of breast; I25.2 Old myocardial infarction; Z88.0 Allergy status to penicillin; Z88.1 Allergy status to other antibiotic agents; Z79.899 Other long term (current) drug therapy; Z86.711 Personal history of pulmonary embolism
CPT/HCPCS: 36415; 71045; 71275; 80048; 83605; 83880; 84132; 84145; 84484; 85025; 85379; 87081; 93005; 93306; 93925; 93970; 99285; A4615; G0378; J1940; J2920; J3490; Q9967